=== PATIENT | male | born 1975 | race Caucasian/White ===

== ENCOUNTER 2017-12-26 01:06 | Emergency (ER) | payer OTHER ==
[~2017-12-26] VITALS: Ht 167.6 cm; Wt 67.6 kg
[~2017-12-26 01:06] MED LIST: ALBU8.5H8 IH; ALBU8.5H8 INH; CYCL-1 PO; GUAI1TBM19 PO; NO HOME MEDS
[2017-12-26 01:49] LABS: BASOPHILS # (AUTO) 0.2 X10'3 (0-0.2); BASOPHILS % (AUTO) 1.9 % (0-1); EOSINOPHILS # (AUTO) 0.3 X10'3 (0-0.9); EOSINOPHILS % (AUTO) 3.8 % (0-6); HEMATOCRIT 46.9 % (42.0-52.0); HEMOGLOBIN 15.4 g/dl (14.0-17.9); LYMPHOCYTES # (AUTO) 4.6 X10'3 (1.1-4.8); MEAN CORPUSCULAR HEMOGLOBIN 29.1 PG (27.0-31.0); MEAN CORPUSCULAR HGB CONC 32.8 % (33.0-36.5); MEAN CORPUSCULAR VOLUME 88.7 FL (78-98); MEAN PLATELET VOLUME 9.1 FL (7.4-10.4); MONOCYTES # (AUTO) 0.7 X10'3 (0-0.9); NEUTROPHILS # (AUTO) 2.3 X10'3 (1.8-7.7); NEUTROPHILS % (AUTO) 28.3 % (42-75); PLATELET COUNT 181 X10'3 (140-440); RED BLOOD COUNT 5.28 X10'6 (4.70-6.10); RED CELL DISTRIBUTION WIDTH 12.2 % (11.5-14.5); WHITE BLOOD COUNT 8.1 X10'3 (4.5-11.0)
[2017-12-26] MEDS ORDERED: morphine 4 MG/ML inj SYRINge IV ONE ×3 (01:50→05:15)
[2017-12-26] MEDS ORDERED: ondansetron/PF 4mg/2ml inj IV ONE ×2 (01:50→05:15)
[2017-12-26 01:58] LABS: PROTHROMBIN TIME 10.8 SECONDS (9.0-12.0)
[2017-12-26 02:02] LABS: ALANINE AMINOTRANSFERASE 14 U/L (12-78); ALBUMIN 3.6 G/DL (3.4-5.0); ALBUMIN/GLOBULIN RATIO 1.2 (1.1-1.5); ALKALINE PHOSPHATASE 81 IU/L (46-116); ANION GAP 11 (8-16); ASPARTATE AMINO TRANSFERASE 14 U/L (10-37); BILIRUBIN,TOTAL 0.4 MG/DL (0.1-1.0); BLOOD UREA NITROGEN 26 MG/DL (7-18); BUN/CREATININE RATIO 20.8 (5.4-32.0); CALCIUM 8.4 MG/DL (8.5-10.1); CHLORIDE 105 MMOL/L (99-107); CREATININE 1.25 MG/DL (0.60-1.10); GLUCOSE 138 MG/DL (70-104); POTASSIUM 3.2 MMOL/L (3.5-5.1); SODIUM 144 MMOL/L (135-145); TOTAL CARBON DIOXIDE 28.4 MMOL/L (24-32); TOTAL PROTEIN 6.7 G/DL (6.4-8.2); eGFR 63 ML/MIN
[2017-12-26] MEDS ORDERED: normal saline 1000ml 1,000 ML IV ONE (02:15)
[2017-12-26] MEDS ORDERED: ketorolac trometh. 30mg/ml inj. IV ONE ×2 (02:15→05:15)
[2017-12-26 02:33] LABS: TOTAL CELLS COUNTED 100
[2017-12-26 02:34] LABS: PLATELET ESTIMATE NORMAL
[2017-12-26 03:35] LABS: CLARITY,URINE CLEAR (Clear); COLOR,URINE YELLOW (Yellow); GLUCOSE, URINE NEGATIVE (Neg); KETONES,URINE NEGATIVE (Neg); LEUKOCYTE ESTERASE ,URINE NEGATIVE (Neg); NITRITES, URINE NEGATIVE (Neg); OCCULT BLOOD,URINE NEGATIVE (Neg); PH,URINE 6.5 (4.8-8.0); PROTEIN,URINE NEGATIVE (Neg); UROBILINOGEN,URINE 0.2 E.U/dL (0.2-1.0)
[2017-12-26 03:37] VITALS: BP 129/88
[2017-12-26 03:42] LABS: UA COLLECTION TYPE CLN CATCH MIDSTREAM
[2017-12-26] MEDS ORDERED: HYDR-569 PO (05:13)
[2017-12-26] MEDS ORDERED: IBUP-1984 PO (05:13)
== END 2017-12-26 05:39 | disposition home or self-care (01) ==
LOC: ER 01:06
DX: N23 Unspecified renal colic (principal); G89.29 Other chronic pain; M54.9 Dorsalgia, unspecified; N50.82 Scrotal pain; Z79.899 Other long term (current) drug therapy
CPT/HCPCS: 36415; 74176; 80053; 81003; 85025; 85610; 96361; 96374; 96375; 96376; 99285; J1885; J2270; J2405; J7030